=== PATIENT | male | born 1990 | race Caucasian/White ===

== ENCOUNTER 2019-05-08 14:17 | Emergency (ER) | payer OTHER, SELFPAY ==
[2019-05-08 14:18] VITALS: BP 120/70; PULSE 71; RESP 16; TEMP 36.6; O2SAT 98; BMI 25.8
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
[2019-05-08] MEDS: Ketorolac 30 MG/ML Syringe IM (16:02)
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
[2019-05-08 16:32] VITALS: BP 119/76; PULSE 67; RESP 17; O2SAT 98
--- NOTE | 2019-05-08 16:33 | NURSING ---
went over the pt d/c instructions and give 2 RX to fill. went over how to take medications, gave the pt a work note, no further questions at this time.
== END 2019-05-08 16:33 | disposition home or self-care (01) ==
LOC: ED 15:37
PROVIDERS: Emergency Provider Emergency Medicine; Family Provider Family Medicine; PCP Family Medicine
DX: S39.012A Strain of muscle, fascia and tendon of lower back, initial encounter (principal); Y92.410 Unspecified street and highway as the place of occurrence of the external cause; V43.52XA Car driver injured in collision with other type car in traffic accident, initial encounter; Y93.9 Activity, unspecified; Y99.9 Unspecified external cause status; S16.1XXA Strain of muscle, fascia and tendon at neck level, initial encounter; S29.012A Strain of muscle and tendon of back wall of thorax, initial encounter
CPT/HCPCS: 72040; 72072; 72100; 96372; 99282

== ENCOUNTER 2020-12-26 00:06 | Emergency (ER) | payer BC, SELFPAY ==
[2019-05-14 16:53] VITALS: BMI 25.8
[2020-12-26 00:07] VITALS: BP 128/70; PULSE 74; RESP 18; TEMP 37.6; O2SAT 96; BMI 23.6
--- NOTE | 2020-12-26 00:15 | RAD_ITS ---
STUDY: X-RAY - RIGHT FOOT CLINICAL: Male, 30 years old. pain TECHNIQUE: 3 view(s) of the foot. COMPARISON: None. FINDINGS: Normal talus, calcaneus, and tarsal bones. Normal visualized subtalar, talonavicular, calcaneocuboid, tarsal and tarsometatarsal articulations. There is a transverse fracture of the fifth metatarsal base. Normal metatarsophalangeal joint of the great toe. Normal tibial and fibular sesamoid bones. Normal interphalangeal joint of the great toe. Normal phalanges of the great toe. Normal second through fifth metatarsophalangeal joints. Normal interphalangeal joints and phalanges of the lesser toes. The soft tissue structures are unremarkable. There is no demonstrated fracture. RAD/Foot min 3 Views IMPRESSION: Fifth metatarsal base fracture as described, otherwise normal x-ray examination of the foot. Electronically Signed: Deepika Ulrich MD at 0:59 EDT , Service support ,
[2020-12-26] MEDS: HYDROcodone Bitartrate/Apap 5/325 Tablet PO (01:24)
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
== END 2020-12-26 01:29 | disposition home or self-care (01) ==
PROVIDERS: Emergency Provider Student in an Organized Health Care Education/Training Program; PCP Family Medicine
DX: S92.351A Displaced fracture of fifth metatarsal bone, right foot, initial encounter for closed fracture (principal); W01.0XXA Fall on same level from slipping, tripping and stumbling without subsequent striking against object, initial encounter; F17.210 Nicotine dependence, cigarettes, uncomplicated
CPT/HCPCS: 73630; 99283

== ENCOUNTER → 2021-03-10 09:28 | Outpatient (CLI) | payer BC, SELFPAY ==
[2021-03-10 12:22] LABS: Anion Gap 4 (5-15); BUN 12 mg/dL (7-18); Calcium,Total 9.2 mg/dL (8.5-10.1); Chloride 108 mmol/L (98-107); Creatinine, Serum 0.67 mg/dL (0.70-1.30); EST Glomerular Filtration Rate 150 mL/min (>60); Est Glom Filt Rate - Afr Amer 182 mL/min (>60); Glucose 90 mg/dL (74-106); Potassium 4.5 mmol/L (3.5-5.1); Sodium Level 140 mmol/L (136-145)
== END ==
LOC: BIMLAB 09:29
PROVIDERS: PCP Family Medicine; Referring Provider Family Medicine; Visit Provider Family Medicine
DX: R63.4 Abnormal weight loss (principal)
CPT/HCPCS: 36415; 80048

== ENCOUNTER 2021-10-19 09:01 | Outpatient (CLI) | payer BC, SELFPAY ==
[2021-10-19 14:59] LABS: Chlamydia Trachomatis by PCR POSITIVE (Negative); Probe Check PASS
== END 2021-10-19 23:59 | disposition home or self-care (01) ==
LOC: BIMLAB 09:14
PROVIDERS: PCP Family Medicine; Referring Provider Family Medicine; Visit Provider Family Medicine
DX: Z20.2 Contact with and (suspected) exposure to infections with a predominantly sexual mode of transmission (principal)
CPT/HCPCS: 87491

== ENCOUNTER → 2021-11-11 | Outpatient (CLI) | payer BC, SELFPAY ==
[2021-11-11 10:34] LABS: Mucous, Urine 0 SEEN /hpf (<or=2+); Red Blood Cells-Urine 0 SEEN /hpf (0-5); Squamous Epithelial Cells - UA 0 SEEN /hpf (0-5)
[2021-11-11 12:30] LABS: Color, Urine Yellow (Yellow); Glucose, Dipstick Normal (Normal); Ketone-Dipstick Negative (Negative); Leukocyte Esterase-Dipstick Negative /ul (Negative); Nitrite-Dipstick Negative (Negative); Occult Blood-Urine Negative /ul (Negative); Protein-Dipstick Negative (Negative); Urine Bilirubin Dipstick Negative (Negative); Urine Clarity Clear (Clear); Urine Urobilinogen Normal (Normal)
[2021-11-11 12:43] LABS: Amorphous Sediment 2+; Bacteria 1+ /hpf (None Seen); White Blood Cells 0-5 SEEN /hpf (0-5)
[2021-11-11 13:12] LABS: HIV - WCH Non-Reactive (Nonreactive); Hepatitis C Antibody Non-Reactive (Nonreactive); Syphilis Antibodies Non-reactive
[2021-11-12 08:11] LABS: Hepatitis Be Ag Negative (Negative)
[2021-11-12 09:42] LABS: Hepatitis A IgM Antibody Negative (Negative)
[2021-11-14 22:06] LABS: Chlamydia By Nucleic Acid AMP Negative (Negative)
[2021-11-15 16:45] LABS: Gonococcus By Nucleic Acid AMP Negative (Negative)
== END | disposition home or self-care (01) ==
LOC: BIMLAB 10:27
PROVIDERS: PCP Family Medicine; Referring Provider Physician Assistant; Visit Provider Physician Assistant
DX: Z20.2 Contact with and (suspected) exposure to infections with a predominantly sexual mode of transmission (principal); Z11.3 Encounter for screening for infections with a predominantly sexual mode of transmission
CPT/HCPCS: 36415; 81001; 86703; 86709; 86780; 86803; 87350; 87491; 87591

== ENCOUNTER → 2022-05-12 | Outpatient (CLI) | payer BC, SELFPAY ==
[2022-05-12 12:40] LABS: Absolute Lymphocyte Count 1.95 X10^3/uL (0.83-4.51); Absolute Neutrophil Count 5.1 X10^3/uL (2.0-7.7); Basophil# 0.05 X10^3/uL; Basophil% 0.6 % (0-1); Eosinophils% 2.5 % (0-5); Hematocrit 45.3 % (40-54); Hemoglobin 15.1 g/dL (13.0-16.5); Lymphocyte # 1.95 X10^3/ul (0.83-4.51); Lymphocyte % 24.5 % (19-41); Mean Corp Hgb Conc 33.3 g/dL (32-36); Mean Corpuscular Hgb 28.3 pg (27.0-32.0); Mean Corpuscular Volume 84.8 fL (80-94); Mean Platelet Vol. 10.3 fl (6.2-12.0); Monocyte# 0.62 X10^3/uL; Monocyte% 7.8 % (0-10); NRBC Flagged by Analyzer 0 % (0-5); Neutrophil # 5.11 X10^3/uL (2.7-7.7); Neutrophil % 64.3 % (47-70); Platelet Count 394 K/mm3 (150-450); RBC Distribution Width CV 12.3 % (11.6-14.6); RBC Distribution Width SD 37.7 fl (35.1-43.9); Red Blood Count 5.34 M/mm3 (4.6-6.2)
[2022-05-12 13:14] LABS: ALB/GLOB Ratio 1.1 RATIO (0.9-2.4); AST(SGOT) 16 U/L (15-37); Alanine Aminotransfer ALT/SGPT 21 U/L (16-61); Alkaline Phosphatase 46 U/L (45-117); Anion Gap 7 (5-15); BUN 13 mg/dL (7-18); BUN/Creat Ratio 15.7 RATIO (10-20); Chloride 108 mmol/L (98-107); Cholesterol 138 mg/dL (200); Creatinine, Serum 0.83 mg/dL (0.70-1.30); EST Glomerular Filtration Rate 116 mL/min (>60); Est Glom Filt Rate - Afr Amer 141 mL/min (>60); Globulin 3.6 g/dL (2.2-4.2); Glucose 105 mg/dL (74-106); High Density Lipoprotein 37 mg/dL; Protein, Total 7.6 g/dL (6.4-8.2); Sodium Level 141 mmol/L (136-145); Thyroid Stim Hormone (TSH) 1.28 uIU/mL (0.358-3.74); Triglycerides 77 mg/dL; Very Low Density Lipoprotein 15 mg/dL (5-40)
== END | disposition home or self-care (01) ==
LOC: BIMLAB 08:54
PROVIDERS: PCP Family Medicine; Referring Provider Nurse Practitioner Family; Visit Provider Nurse Practitioner Family
DX: Z00.00 Encounter for general adult medical examination without abnormal findings (principal); F98.8 Other specified behavioral and emotional disorders with onset usually occurring in childhood and adolescence
CPT/HCPCS: 36415; 80053; 80061; 84443; 85025

== ENCOUNTER → 2023-04-25 | Outpatient (CLI) | payer BC, SELFPAY ==
--- NOTE | 2023-04-25 12:14 | NEURO ---
NCS and/or EMG Patient Report Ordering Doctor: Joe Ann DATE OF SERVICE: 04/25/23 Wil presents electrodiagnostic testing of the upper limbs. He reports pain in the hands and wrists for several months. Electrodiagnostic findings: Right median motor nerve demonstrates normal distal latency, amplitude and conduction velocity. Left median motor response demonstrates normal distal latency, amplitude and conduction velocity. Ulnar motor response demonstrates normal distal latency, amplitude and conduction velocity bilaterally. Borderline prolonged right median sensory latency at the wrist. Normal left median sensory response. Normal median palmar latency bilaterally. Normal ulnar and radial sensory responses. F-waves are within normal limits. Needle EMG testing was performed the upper limbs. All muscles tested showed no evidence of denervation with normal motor unit action potentials. Electrodiagnostic impression: This is a normal electrodiagnostic study of the upper limbs. There is no electrodiagnostic evidence for peripheral neuropathy, including carpal tunnel syndrome. There is no electrodiagnostic evidence for cervical radiculopathy. Multi Select Codes Neurology Neurology Interp Codes: 31828-90 Musc test done w/n test comp (interp) (2) and 70070-32 Nrv cndj test 13/> studies (interp)
[2023-04-25 15:20] LABS: Erythrocyte Sedimentation Rate < 1 mm/hr (0-20)
== END | disposition home or self-care (01) ==
PROVIDERS: PCP Family Medicine; Referring Provider Family Medicine; Visit Provider Family Medicine
DX: R20.0 Anesthesia of skin (principal)
CPT/HCPCS: 36415; 85652; 95886; 95913

== ENCOUNTER → 2024-05-22 | Outpatient (CLI) | payer SELFPAY ==
[2024-05-22 14:57] LABS: Bacteria 0 SEEN /hpf (None Seen)
[2024-05-22 17:27] LABS: Color, Urine Yellow (Yellow); Glucose, Dipstick Normal (Normal); Ketone-Dipstick Negative (Negative); Leukocyte Esterase-Dipstick Negative /ul (Negative); Nitrite-Dipstick Negative (Negative); Occult Blood-Urine 10 /ul (Negative); Protein-Dipstick 30 mg/dl (Negative); Specific Gravity, Urine 1.015 (1.002-1.030); Urine Bilirubin Dipstick Negative (Negative); Urine Clarity Clear (Clear); Urine Urobilinogen 1 mg/dl (Normal); Urine pH 6.5 (5.0 - 8.0)
[2024-05-22 17:31] LABS: Absolute Lymphocyte Count 2.17 X10^3/uL (0.83-4.51); Absolute Neutrophil Count 4.2 X10^3/uL (2.0-7.7); Basophil# 0.05 X10^3/uL; Basophil% 0.7 % (0-1); Eosinophil# 0.14 X10^3/uL; Hematocrit 44.5 % (40-54); Hemoglobin 14.9 g/dL (13.0-16.5); Lymphocyte # 2.17 X10^3/ul (0.83-4.51); Lymphocyte % 30.9 % (19-41); Mean Corp Hgb Conc 33.5 g/dL (32-36); Mean Corpuscular Hgb 27.6 pg (27.0-32.0); Mean Corpuscular Volume 82.6 fL (80-94); Mean Platelet Vol. 9.7 fl (6.2-12.0); Monocyte# 0.47 X10^3/uL; Monocyte% 6.7 % (0-10); NRBC Flagged by Analyzer 0 % (0-5); Neutrophil # 4.19 X10^3/uL (2.7-7.7); Neutrophil % 59.6 % (47-70); Platelet Count 470 K/mm3 (150-450); RBC Distribution Width CV 12.2 % (11.6-14.6); RBC Distribution Width SD 36.7 fl (35.1-43.9); Red Blood Count 5.39 M/mm3 (4.6-6.2)
[2024-05-22 17:51] LABS: Mucous, Urine 3+ /hpf (<or=2+); Red Blood Cells-Urine 0-5 SEEN /hpf (0-5); Squamous Epithelial Cells - UA 0-5 SEEN /hpf (0-5); White Blood Cells 0-5 SEEN /hpf (0-5)
[2024-05-22 18:20] LABS: HIV - WCH Non-Reactive (Nonreactive); Hepatitis B Surface Antigen Non-Reactive (Nonreactive); Hepatitis C Antibody Non-Reactive (Nonreactive); Syphilis Antibodies Non-reactive
== END | disposition home or self-care (01) ==
LOC: BIMLAB 14:53
PROVIDERS: PCP Family Medicine; Referring Provider Physician Assistant; Visit Provider Physician Assistant
DX: R35.0 Frequency of micturition (principal); I88.9 Nonspecific lymphadenitis, unspecified
CPT/HCPCS: 81001; 85025; 86703; 86780; 86803; 87086; 87340; 87491; 87591; 87661

== ENCOUNTER → 2024-05-28 | Outpatient (CLI) | payer SELFPAY ==
--- NOTE | 2024-05-28 09:16 | US_ITS ---
STUDY: SCROTUM ULTRASOUND REASON FOR EXAM: Male, 33 years old. pain, rt groin lymphadenopathy TECHNIQUE: Ultrasound evaluation of the scrotum was performed with color Doppler and static hollingsworth-scale imaging. COMPARISON: None. FINDINGS: RIGHT TESTICLE INTRATESTICULAR: There is a normal size of the right testicle. The right testicle measures 4.6 x 2.8 x 2.0 cm. There is a homogenous echotexture. There is normal arterial and normal venous vascularity. There is no demonstrated right testicular mass or cyst. EXTRATESTICULAR: The epididymis is normal in size. The epididymis head measures 0.8 x 0.9 x 1.1 cm. There is normal vascularity of the epididymis. There is no demonstrated epididymal cystic structure. There is no demonstrated hydrocele. There is no demonstrated varicocele. There is no demonstrated extratesticular mass or cyst. LEFT TESTICLE INTRATESTICULAR: There is a normal size of the left testicle. The left testicle measures 4.3 x 3.0 x 2.4 cm. There is a homogenous echotexture. There is normal arterial and normal venous vascularity. There is no demonstrated left testicular mass or cyst. EXTRATESTICULAR: The epididymis is normal in size. The epididymis head measures 1.0 x 1.2 x 0.8 cm. There is normal vascularity of the epididymis. There is no demonstrated epididymal cystic structure. There is no demonstrated hydrocele. There is no demonstrated varicocele. There is no demonstrated extratesticular mass or cyst. IMPRESSION: Normal bilateral testicles. Electronically Signed: Austin Portillo MD at 12:43 EST , STUDY: SUPERFICIAL ULTRASOUND - RIGHT GROIN REASON FOR EXAM: Male, 33 years old. pain, rt groin lymphadenopathy TECHNIQUE: A superficial ultrasound was performed with real-time and static hollingsworth-scale imaging. COMPARISON: None. FINDINGS: Multiple longitudinal and transverse ultrasound images of the right inguinal area confirm a 2.6 cm oval heterogeneous area which may represent an inguinal hernia. US/Testicular with Arterial Flow IMPRESSION: Suspect right inguinal hernia containing fat. CT may be useful. Electronically Signed: Austin Portillo MD at 12:44 EST ,
== END | disposition home or self-care (01) ==
LOC: US 09:12
PROVIDERS: PCP Family Medicine; Referring Provider Physician Assistant; Visit Provider Physician Assistant
DX: N50.811 Right testicular pain (principal); I88.9 Nonspecific lymphadenitis, unspecified
CPT/HCPCS: 76870; 76882; 93976